=== PATIENT | female | born 1945 | race Caucasian/White ===

== ENCOUNTER → 2016-12-07 | Day surgery (SDC) | payer MEDICARE, OTHER ==
[~2016-12-07] MED LIST: ADVAIR 100-501 EACH INH; ARICEPT23 MG PO; ASPIRIN CHEWABL81 MG PO; ATIVAN1 MG PO; CARTIA XT120 MG PO; DILANTIN100 MG PO; FIORINAL 50-321 EACH PO; FLONASE 0.05% N16 GM; LEVOTHYROXINE125 MCG PO; LINZESS PO; LIPITOR TAB 2020 MG PO; NEURONTIN 300300 MG PO; NEXIUM40 MG PO; NORCO 10-325 T1 EACH PO; PROAIR HFA8.5 GM INH; VITAMIN D250000 UNIT PO
== END | disposition home or self-care (01) ==
LOC: OR 08:28
DX: R10.13 Epigastric pain (principal); G89.29 Other chronic pain
CPT/HCPCS: 80076; 82150; 82565; 83690; 84520

== ENCOUNTER → 2016-12-13 | Outpatient (CLI) | payer MEDICARE, OTHER | LOC: CT 08:59 | DX: R10.13 Epigastric pain (principal); R11.2 Nausea with vomiting, unspecified; D50.0 Iron deficiency anemia secondary to blood loss (chronic) | CPT/HCPCS: J7050; Q9962 ==

== ENCOUNTER → 2016-12-19 | Day surgery (SDC) | payer MEDICARE, OTHER ==
[~2016-12-19] VITALS: Ht 172.7 cm; Wt 103.9 kg
== END | disposition home or self-care (01) ==
LOC: OR 07:54
PROVIDERS: Internal Medicine Gastroenterology
PROC: 0DB78ZX Excision of Stomach, Pylorus, Via Natural or Artificial Opening Endoscopic, Diagnostic (ICD-10-PCS; principal; 2016-12-19 10:00)
DX: K31.89 Other diseases of stomach and duodenum (principal); K25.9 Gastric ulcer, unspecified as acute or chronic, without hemorrhage or perforation; K26.9 Duodenal ulcer, unspecified as acute or chronic, without hemorrhage or perforation; K21.9 Gastro-esophageal reflux disease without esophagitis; E66.9 Obesity, unspecified; Z68.34 Body mass index [BMI] 34.0-34.9, adult; Z85.41 Personal history of malignant neoplasm of cervix uteri; Z88.0 Allergy status to penicillin; Z88.1 Allergy status to other antibiotic agents; Z88.2 Allergy status to sulfonamides; I95.9 Hypotension, unspecified; Z90.710 Acquired absence of both cervix and uterus
CPT/HCPCS: J2250; J7030

== ENCOUNTER → 2021-05-23 | Outpatient (CLI) | payer MEDICARE, OTHER ==
[~2021-05-23] MED LIST changes: +ZETIA 10 MG TAB10 MG PO
== END ==
LOC: EXRD 10:28
DX: M79.642 Pain in left hand (principal); M79.641 Pain in right hand
CPT/HCPCS: 73130